=== PATIENT | female | born 1960 | race Caucasian/White ===

== ENCOUNTER → 2024-08-23 | Outpatient (CLI) | payer MEDICARE, SELFPAY ==
[2024-08-23 08:43] LABS: Glucose Estimated Average 97 mg/dL (80-131)
[2024-08-23 08:55] LABS: Parathyroid Hormone Intact 51.9 pg/ml (18.5-88.0)
[2024-08-23 09:00] LABS: Alanine Aminotransferase 31 U/L (10-49); Albumin, Serum 4.7 gm/dL (3.4-4.8); Albumin/Globulin Ratio 1.8 (1.2-2.2); Alkaline Phosphatase 70 U/L (46-116); Anion Gap 4 (7-16); Aspartate Amino Transferase 19 U/L (0-34); BUN/Creatinine Ratio 16 Ratio (12-20); Bilirubin,Total 0.7 mg/dL (0.3-1.2); Blood Urea Nitrogen 13 mg/dL (9-23); Calcium 10.2 mg/dL (8.3-10.6); Calcium (Corrected) 10.2 mg/dL (8.5-10.1); Cardiac Risk Estimate 3.7 RATIO (3.7-5.6); Chloride 104 mMol/L (98-107); Cholesterol 151 mg/dL (132-200); Creatinine (Component) 0.8 mg/dL (0.6-1.3); Free T3 2.8 pg/mL (2.3-4.2); Free T4 (Free Thyroxine) 0.94 ng/dL (0.89-1.76); Globulin 2.6 gm/dL (2.3-3.5); Glucose 96 mg/dL (74-106); HDL Cholesterol 41 mg/dL (40-60); LDL Cholesterol,Calculated 84 mg/dL (0-130); Osmolality,Calculated 268 (275-295); Potassium 4.7 mMol/L (3.4-5.1); Sodium 134 mMol/L (136-145); Thyroid Stimulating Hormone 23.06 uIU/mL (0.55-4.78); Total Protein 7.3 gm/dL (5.7-8.2); Triglycerides 132 mg/dL (30-150); eGFR > 60 See Note
[2024-08-29 06:40] LABS: Vitamin D, 25-OH, D2 25 ng/mL; Vitamin D, 25-OH, D3 15 ng/mL; Vitamin D, 25-OH, Total 40 ng/mL (30-100)
[2024-08-31 15:36] LABS: Cortisol, 24-Hr Volume 1100 mL
[2024-09-01 06:41] LABS: Cortisol, Free, 24-Hour Urine 33.7 mcg/24 h (4.0-50.0); Creatinine, 24-Hour Urine 0.88 g/24 h (0.50-2.15)
== END | disposition home or self-care (01) ==
LOC: COPL 07:53
PROVIDERS: PCP Specialist; Referring Provider Specialist; Visit Provider Specialist
DX: E78.2 Mixed hyperlipidemia (principal); E03.9 Hypothyroidism, unspecified; E21.1 Secondary hyperparathyroidism, not elsewhere classified; E08.3292 Diabetes mellitus due to underlying condition with mild nonproliferative diabetic retinopathy without macular edema, left eye
CPT/HCPCS: 36415; 80053; 80061; 82306; 82530; 83036; 83970; 84439; 84443; 84481

== ENCOUNTER → 2024-09-16 | Outpatient (CLI) | payer MEDICARE, SELFPAY ==
[2024-09-16 10:32] LABS: Basophils # (Auto) 0.1 Thou/mm3 (0.0-0.2); Basophils % (Auto) 1 % (0-2.5); Eosinophils # (Auto) 0.1 Thou/mm3 (0.0-0.5); Eosinophils % (Auto) 3 % (0-10); Hematocrit 39.2 % (36.0-46.0); Hemoglobin 13.1 g/dL (12.0-16.0); Immature Granulocytes % (Auto) 2 % (0-0); Immature Granulocytes Auto 0.08 Thou/mm3 (0.00-0.00); Lymphocytes % (Auto) 19 % (10-50); Mean Corpuscular HGB Conc 33.4 g/dl (31.0-37.0); Mean Corpuscular Hemoglobin 30.3 pg (25.0-35.0); Mean Corpuscular Volume 91 fL (80-100); Monocytes # (Auto) 0.7 Thou/mm3 (0.0-0.8); Monocytes % (Auto) 14 % (0-12); Neutrophils # (Auto) 3.4 Thou/mm3 (1.8-7.7); Neutrophils % (Auto) 63 % (37-80); Nucleated Red Blood Cell % 0 /100 WBC (0); Platelet Count 325 Thou/mm3 (140-440); RDW Standard Deviation 52.2 fL (36.4-46.3); Red Blood Count 4.33 Miln/mm3 (4.00-5.20); White Blood Count 5.5 Thou/mm3 (3.6-11.0)
[2024-09-16 11:07] LABS: Folate 8.91 ng/mL (>5.38); Vitamin B12 613 pg/mL (211-911)
[2024-09-16 11:18] LABS: Ferritin 232 ng/mL (7.3-270.7); Total Iron Binding Capacity 295 mcg/dL (250-425)
[2024-09-16 11:43] LABS: Iron 75 mcg/dL (50-170); Percent Iron Saturation 25 % (20-55); Unsaturated Iron Binding 220 (225-295)
[2024-09-26 06:48] LABS: Haptoglobin* 44 mg/dL (43-212)
== END | disposition home or self-care (01) ==
PROVIDERS: PCP Specialist; Referring Provider Internal Medicine Hematology & Oncology; Visit Provider Internal Medicine Hematology & Oncology
DX: R16.1 Splenomegaly, not elsewhere classified (principal)
CPT/HCPCS: 36415; 82607; 82728; 82746; 83010; 83540; 83550; 85025

== ENCOUNTER 2024-09-22 09:38 | Outpatient (RCR) | payer MEDICARE, SELFPAY ==
--- NOTE | 2024-09-22 13:03 | CTCFLWUP_ITS ---
Patient: JAMEEL LOUIE : 1960 Page 2 of 2 FOLLOW UP NOTE DATE OF SERVICE: 09/22/2024 NAME: JAMEEL LOUIE ACCOUNT: [id number] : 1960 AGE: 64 REASON FOR VISIT: Follow-up on iron deficiency INTERVAL HISTORY: Patient is here to follow-up on her iron deficiency anemia. Patient says that she has received 3 inf usions of iron and still feels the same. She understand that she has fatty liver disease and trying to lose weight. She has been on example he can have lost 9 pounds. She is not physically active. 1999: Patient had gastric bypass surgery done in [place] for obesity. 2019: Patient is started on B12 injections due to B12 deficiency. 01/21/2021: Hemoglobin 11.3, MCV 79, WBC 6.1, ANC 3.4, platelets 447,000, creatinine 0.8, iron saturat ion 11%, ferritin 5, TIBC 398. 02/26/2021: Hemoglobin 10.7, MCV 79, WBC 6.3, ANC 3.4, platelets 468,000, iron saturation 6%, ferritin 6, B12 408 and folate 13.15. 03/06/2021?05/01/2021: Patient received 1800 mg of Venofer. 05/09/2021: Hemoglobin 14.9, MCV 87, WBC 7.4, ANC 4.6, platelets 332,000. 07/23/2021: Hemoglobin 14.0, hematocrit 43.2, MCV 91, WBC 8.2, ANC 1.7, platelets 382,000, creatinine 0.9, iron saturation 21%, ferritin 188, B12 506, folate 9.18. 05/06/2021: MRI of the abdomen with and without contrast 10/28/2021: Liver/spleen nuclear medicine scan? 01/09/2022: CT scan of the abdomen with IV contrast? 01/28/2022: EGD? 02/04/2022: Colonoscopy? 08/12/2022: CT scan of the chest and abdomen with IV contrast? Hemoglobin 13.6, MCV 88, WBC 5.7, ANC 3.4, platelets 361,000, iron saturation 21%, ferritin 85. 08/19/2023: Hemoglobin 13.8, MCV 90, WBC 6.9, ANC 4.2, platelets 380,000, iron saturation 19%, ferriti n 69. B12 706, folate 11.87. 06/06/2024: Hemoglobin 14.9, MCV 87, WBC 10.3, ANC 7.4, platelets 443,000, creatinine 1.0, iron satura tion 14%, ferritin 78 B12 930, folate 13.32. DIAGNOSIS: History of Iron deficiency anemia not responding to oral ferrous sulfate. Status post Venofer infusion (03/06/2021 - 08/01/2021) History of gastric bypass surgery in 1999 for obesity. History of hypothyroidism as well as B12 deficiency. Cholecystectomy in 1984. Hepatosplenomegaly. Beatty Hiatal hernia. Hemorrhoids. 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 Ambien CR - 12.5 mg Daily 2. Citracal - 200 mg Twice a Day 3. cyanocobalamin (vitamin B-12) - 1,000 mcg/mL 1,000 microgram Monthly 4. levothyroxine - 125 mcg 1 tab Daily 5. multivitamin - 1 tab Daily 6. Prolia - 60 mg/mL 60 mg Every 6 Months 7. Protonix - 40 mg 1 Twice a Day 8. Vitamin D2 - 1,000 unit 2 Capsule Twice a Day Medications Last Reconciled by Madeleine June MA on 09/22/2024 ALLERGIES: No Known Drug Allergies REVIEW OF SYSTEMS: A complete 14-point review of systems was performed and is negative except as noted in interval histo ry. PHYSICAL EXAMINATION: VITAL SIGNS: Temperature?98, B/P?113/76, Oxygen?Saturation?98% Weight?190?lbs PAIN: 0 - No pain ECOG Performance Status: 0 - Asymptomatic and fully active EYE: Conjunctivae is white MOUTH: Oral cavity is moist CHEST: Clear to auscultation. No wheezes or ra les audible. CARDIAC: Rhythm regular, no murmurs or gallops present. ABDOMEN: Right upper quadrant mildly tender. EXTREMITIES: No pedal edema or cyanosis. LABORATORY DATA: I have personally reviewed and interpreted each of the patient?s relevant lab tests, abnormal finding s are below: Date 09/16/24 ??WHITE?BLOOD?COUNT?(Thou/mm3) 5.5 ??RED?BLOOD?COUNT?(Miln/mm3) 4.33 ??HEMOGLOBIN?(gm/dl) 13.1 ??HEMATOCRIT?(%) 39.2 ??PLATELET?COUNT?(Thou/mm3) 325 ??NEUTROPHILS?%,?AUTO?(%) 63 ??LYMPH?%,?AUTO?(%) 19 ??NEUTROPHILS,?AUTO?(Thou/mm3) 3.4 IMPRESSION/PLAN: #1 iron deficiency anemia hemoglobin is in the normal range. 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 I spent a total of 50 minutes on this patient?s care on the day of their visit excluding time spent related to any bi lled procedures. This time includes time spent with the patient as well as time spent documenting in the medical record, reviewing patients records and tests, obtaining history, placing orders, communi cating with other healthcare professionals, counseling the patient, family or caregiver, and/or care coordination for the diagnoses above. Electronically Signed by: Greg Reynoso MD T: 1:00 PM CC: Arthur?AYUSH Wheatley PCP: Arthur Wheatley Referring: Arthur Wheatley This document was completed utilizing speech recognition software. Grammatical errors, random word in sertions, pronoun errors, and incomplete sentences are an occasional consequence of this system due t o software limitations, ambient noise, and hardware issues. Any formal questions or concerns about th e content, text'? 81 iron deficiency with iron saturation of 14%. Hemoglobin is in the normal range. Patient's fatigue is multifactorial but can be attributed to low iron state thyroid issues and excess mary ann weight Counseled patient to continue iron infusion Will stop iron infusion after 5 treatments Jose Miguel l continue iron infusions for now 200 mg weekly for total 5 treatment Will check iron studies at that time Patient: JAMEEL LOUIE. : 1960 Page 5 of S Advised stretching and exercising Advised to continue wit h losing weight and encouraged patient to control her diet especially being on Ozempic #2 cirrhosis l iver Patient have diffusely hepatosplenomegaly secondary to Beatty Will check liver ultrasound to rule out SCC Advised to reduce weight #3 hypothyroidism 0n Levoxyl Patient very symptomatic with the sympt oms of fatigue and tiredness likely attributable to hypothyroid Some patient's symptoms improved with [place] Thyroid advised to discuss with the PCP or cad technician the same #4 hiatal hernia Follow-u p with PCP Continue diet and exercise for weight loss #5 history of gastric bypass Patient's last vit groves levels was within normal range Advised to continue her supplements or information contained with in the body of this dictation should be directly addressed to the provider for clarification.
== END 2024-10-11 23:59 | disposition home or self-care (01) ==
LOC: SCTC 09:38
PROVIDERS: PCP Specialist; Referring Provider Specialist; Visit Provider Internal Medicine Hematology & Oncology
DX: D50.9 Iron deficiency anemia, unspecified (principal); K74.60 Unspecified cirrhosis of liver; E03.9 Hypothyroidism, unspecified; K44.9 Diaphragmatic hernia without obstruction or gangrene
CPT/HCPCS: 99212; G0463

== ENCOUNTER → 2024-10-21 | Outpatient (CLI) | payer MEDICARE, SELFPAY ==
--- NOTE | 2024-10-21 | XR_ITS ---
Examination: PA lateral chest 2 views TECHNIQUE: Upright PA lateral chest 2 views Exam date and time: October 21, 2024 0729 hours Comparison April 10, 2022 INDICATIONS: Coughing beginning 3 weeks ago, history pulmonary nodule FINDINGS: Mild prominence of the left ventricle Parenchymal disease in the lingular segment obscuring detail left cardiac contour Right lung clear Severe osteopenia with mild kyphosis dorsal spine IMPRESSION: Mild pneumonia lingular segment left upper lobe
== END | disposition home or self-care (01) ==
PROVIDERS: PCP Specialist; Referring Provider Specialist; Visit Provider Specialist
DX: J18.9 Pneumonia, unspecified organism (principal)
CPT/HCPCS: 71046

== ENCOUNTER → 2024-10-27 | Outpatient (CLI) | payer MEDICARE, SELFPAY ==
[2024-10-27 09:37] LABS: Coccid Serology, CF (UCD)* See Sep Rpt
[2024-10-27 11:19] LABS: Alanine Aminotransferase 35 U/L (10-49); Albumin, Serum 4.5 gm/dL (3.4-4.8); Albumin/Globulin Ratio 1.6 (1.2-2.2); Alkaline Phosphatase 82 U/L (46-116); Anion Gap 10 (7-16); Aspartate Amino Transferase 24 U/L (0-34); BUN/Creatinine Ratio 19 Ratio (12-20); Bilirubin,Total 0.6 mg/dL (0.3-1.2); Blood Urea Nitrogen 17 mg/dL (9-23); Calcium 9.9 mg/dL (8.3-10.6); Calcium (Corrected) 9.9 mg/dL (8.5-10.1); Carbon Dioxide 26.5 mMol/L (20.0-31.0); Chloride 102 mMol/L (98-107); Creatinine (Component) 0.9 mg/dL (0.6-1.3); Globulin 2.8 gm/dL (2.3-3.5); Glucose 106 mg/dL (74-106); Osmolality,Calculated 277 (275-295); Potassium 4.2 mMol/L (3.4-5.1); Sodium 138 mMol/L (136-145); Thyroid Stimulating Hormone 5.11 uIU/mL (0.55-4.78); Total Protein 7.3 gm/dL (5.7-8.2); eGFR > 60 See Note
[2024-10-27 20:38] LABS: Free T3 2.6 pg/mL (2.3-4.2)
[2024-10-28 02:58] LABS: Vitamin D 25 Hydroxy Total 31.8 ng/mL (7.3-40.2)
[2024-11-01 06:34] LABS: Thyroid Peroxidase Antibodies* 1 IU/mL (<9)
== END | disposition home or self-care (01) ==
LOC: COPL 09:16
PROVIDERS: PCP Specialist; Referring Provider Specialist; Visit Provider Specialist
DX: D73.2 Chronic congestive splenomegaly (principal); E87.1 Hypo-osmolality and hyponatremia; E03.4 Atrophy of thyroid (acquired); J45.901 Unspecified asthma with (acute) exacerbation
CPT/HCPCS: 36415; 80053; 82306; 84439; 84443; 84481; 86171; 86376

== ENCOUNTER → 2024-12-28 | Outpatient (CLI) | payer MEDICARE, SELFPAY ==
[2024-12-28 09:54] LABS: Basophils # (Auto) 0.1 Thou/mm3 (0.0-0.2); Basophils % (Auto) 1 % (0-2.5); Eosinophils # (Auto) 0.3 Thou/mm3 (0.0-0.5); Eosinophils % (Auto) 4 % (0-10); Hematocrit 41.6 % (36.0-46.0); Hemoglobin 13.8 g/dL (12.0-16.0); Immature Granulocytes % (Auto) 2 % (0-0); Immature Granulocytes Auto 0.12 Thou/mm3 (0.00-0.00); Lymphocytes # (Auto) 1.3 Thou/mm3 (1.0-4.8); Lymphocytes % (Auto) 17 % (10-50); Mean Corpuscular HGB Conc 33.2 g/dl (31.0-37.0); Mean Corpuscular Hemoglobin 30.1 pg (25.0-35.0); Mean Corpuscular Volume 91 fL (80-100); Monocytes % (Auto) 13 % (0-12); Neutrophils # (Auto) 4.7 Thou/mm3 (1.8-7.7); Neutrophils % (Auto) 63 % (37-80); Nucleated Red Blood Cell % 0 /100 WBC (0); Platelet Count 387 Thou/mm3 (140-440); RDW Standard Deviation 49.1 fL (36.4-46.3); Red Blood Count 4.58 Miln/mm3 (4.00-5.20); White Blood Count 7.4 Thou/mm3 (3.6-11.0)
[2024-12-28 10:11] LABS: Parathyroid Hormone Intact 45.1 pg/ml (18.5-88.0)
[2024-12-28 10:19] LABS: Alanine Aminotransferase 29 U/L (10-49); Albumin, Serum 4.4 gm/dL (3.4-4.8); Albumin/Globulin Ratio 1.7 (1.2-2.2); Alkaline Phosphatase 72 U/L (46-116); Anion Gap 9 (7-16); Aspartate Amino Transferase 20 U/L (0-34); BUN/Creatinine Ratio 14 Ratio (12-20); Bilirubin,Total 0.6 mg/dL (0.3-1.2); Blood Urea Nitrogen 14 mg/dL (9-23); Carbon Dioxide 26.6 mMol/L (20.0-31.0); Cardiac Risk Estimate 3.7 RATIO (3.7-5.6); Chloride 102 mMol/L (98-107); Cholesterol 157 mg/dL (132-200); Free T3 4.7 pg/mL (2.3-4.2); Globulin 2.6 gm/dL (2.3-3.5); Glucose 101 mg/dL (74-106); HDL Cholesterol 43 mg/dL (40-60); LDL Cholesterol,Calculated 84 mg/dL (0-130); Osmolality,Calculated 276 (275-295); Potassium 4.5 mMol/L (3.4-5.1); Sodium 138 mMol/L (136-145); Thyroid Stimulating Hormone 5.64 uIU/mL (0.55-4.78); Triglycerides 149 mg/dL (30-150); eGFR > 60 See Note
[2025-01-02 06:55] LABS: Thyroid Peroxidase Antibodies* 1 IU/mL (<9)
== END | disposition home or self-care (01) ==
LOC: COPL 09:08
PROVIDERS: PCP Specialist; Referring Provider Internal Medicine Endocrinology, Diabetes & Metabolism; Visit Provider Internal Medicine Endocrinology, Diabetes & Metabolism
DX: E03.9 Hypothyroidism, unspecified (principal); E21.1 Secondary hyperparathyroidism, not elsewhere classified; Z98.84 Bariatric surgery status
CPT/HCPCS: 36415; 80053; 80061; 82306; 83970; 84443; 84481; 85025; 86376

== ENCOUNTER → 2025-02-06 | Outpatient (CLI) | payer MEDICARE, SELFPAY ==
[2025-02-06 08:55] LABS: Alanine Aminotransferase 33 U/L (10-49); Albumin, Serum 4.4 gm/dL (3.4-4.8); Albumin/Globulin Ratio 1.6 (1.2-2.2); Alkaline Phosphatase 74 U/L (46-116); Anion Gap 6 (7-16); Aspartate Amino Transferase 22 U/L (0-34); BUN/Creatinine Ratio 17 Ratio (12-20); Bilirubin,Total 0.5 mg/dL (0.3-1.2); Blood Urea Nitrogen 15 mg/dL (9-23); Calcium 9.7 mg/dL (8.3-10.6); Calcium (Corrected) 9.7 mg/dL (8.5-10.1); Carbon Dioxide 26.3 mMol/L (20.0-31.0); Chloride 106 mMol/L (98-107); Creatinine (Component) 0.9 mg/dL (0.6-1.3); Globulin 2.8 gm/dL (2.3-3.5); Glucose 118 mg/dL (74-106); Osmolality,Calculated 277 (275-295); Potassium 4.6 mMol/L (3.4-5.1); Sodium 138 mMol/L (136-145); Total Protein 7.2 gm/dL (5.7-8.2); eGFR > 60 See Note
[2025-02-06 08:57] LABS: Basophils # (Auto) 0.1 Thou/mm3 (0.0-0.2); Basophils % (Auto) 1 % (0-2.5); Eosinophils # (Auto) 0.3 Thou/mm3 (0.0-0.5); Eosinophils % (Auto) 4 % (0-10); Hematocrit 42.1 % (36.0-46.0); Immature Granulocytes % (Auto) 2 % (0-0); Immature Granulocytes Auto 0.15 Thou/mm3 (0.00-0.00); Lymphocytes # (Auto) 1.4 Thou/mm3 (1.0-4.8); Lymphocytes % (Auto) 20 % (10-50); Mean Corpuscular HGB Conc 33.3 g/dl (31.0-37.0); Mean Corpuscular Hemoglobin 30.3 pg (25.0-35.0); Mean Corpuscular Volume 91 fL (80-100); Monocytes # (Auto) 0.9 Thou/mm3 (0.0-0.8); Monocytes % (Auto) 12 % (0-12); Neutrophils # (Auto) 4.2 Thou/mm3 (1.8-7.7); Neutrophils % (Auto) 61 % (37-80); Nucleated Red Blood Cell % 0 /100 WBC (0); Platelet Count 366 Thou/mm3 (140-440); RDW Standard Deviation 48.5 fL (36.4-46.3); Red Blood Count 4.62 Miln/mm3 (4.00-5.20)
== END | disposition home or self-care (01) ==
LOC: COPL 07:27
PROVIDERS: PCP Specialist; Referring Provider Internal Medicine; Visit Provider Internal Medicine
DX: K74.00 Hepatic fibrosis, unspecified (principal); K75.81 Nonalcoholic steatohepatitis (NASH)
CPT/HCPCS: 36415; 80053; 82105; 85025

== ENCOUNTER → 2025-02-14 | Outpatient (CLI) | payer MEDICARE, SELFPAY ==
--- NOTE | 2025-02-14 10:30 | XR_ITS ---
Examination: Liver ultrasound elastography Exam date and time: February 14, 2025 1022 hours INDICATIONS: Fatty liver diagnosis July 2024 FINDINGS: Liver 17.9 cm fatty infiltration smooth contour no focal liver lesions Normal hepatopedal portal venous flow Patent IVC Tissue stiffness average 1.8 m/s mild to moderate liver fibrosis IMPRESSION: [id number] liver fibrosis
== END | disposition home or self-care (01) ==
PROVIDERS: PCP Specialist; Referring Provider Internal Medicine; Visit Provider Internal Medicine
DX: K74.00 Hepatic fibrosis, unspecified (principal); K75.81 Nonalcoholic steatohepatitis (NASH)
CPT/HCPCS: 76981

== ENCOUNTER → 2025-03-08 | Outpatient (CLI) | payer MEDICARE, SELFPAY ==
[2025-03-08 08:32] LABS: Basophils # (Auto) 0.1 Thou/mm3 (0.0-0.2); Basophils % (Auto) 1 % (0-2.5); Eosinophils # (Auto) 0.3 Thou/mm3 (0.0-0.5); Eosinophils % (Auto) 4 % (0-10); Hematocrit 40.8 % (36.0-46.0); Hemoglobin 14.1 g/dL (12.0-16.0); Immature Granulocytes % (Auto) 2 % (0-0); Lymphocytes # (Auto) 1.1 Thou/mm3 (1.0-4.8); Lymphocytes % (Auto) 16 % (10-50); Mean Corpuscular HGB Conc 34.6 g/dl (31.0-37.0); Mean Corpuscular Hemoglobin 30.3 pg (25.0-35.0); Mean Corpuscular Volume 88 fL (80-100); Monocytes # (Auto) 0.9 Thou/mm3 (0.0-0.8); Monocytes % (Auto) 14 % (0-12); Neutrophils # (Auto) 4.4 Thou/mm3 (1.8-7.7); Neutrophils % (Auto) 64 % (37-80); Nucleated Red Blood Cell % 0 /100 WBC (0); Platelet Count 364 Thou/mm3 (140-440); RDW Standard Deviation 46.7 fL (36.4-46.3); Red Blood Count 4.65 Miln/mm3 (4.00-5.20); Reticulocyte % (Auto) 3.2 % (0.5-1.5); Reticulocyte Absolute Auto 146.5 Biln/L (25.0-75.0); Reticulocyte Hgb Content 34.4 pg (28.0-35.0); White Blood Count 6.9 Thou/mm3 (3.6-11.0)
[2025-03-08 08:41] LABS: Glucose Estimated Average 105 mg/dL (80-131); Hemoglobin A1C 5.3 % Hgb (4.8-6.0)
[2025-03-08 08:52] LABS: Alanine Aminotransferase 32 U/L (10-49); Albumin, Serum 4.4 gm/dL (3.4-4.8); Albumin/Globulin Ratio 1.7 (1.2-2.2); Alkaline Phosphatase 70 U/L (46-116); Anion Gap 10 (7-16); Aspartate Amino Transferase 22 U/L (0-34); BUN/Creatinine Ratio 16 Ratio (12-20); Bilirubin,Total 0.6 mg/dL (0.3-1.2); Blood Urea Nitrogen 14 mg/dL (9-23); Calcium 9.4 mg/dL (8.3-10.6); Calcium (Corrected) 9.4 mg/dL (8.5-10.1); Carbon Dioxide 25.2 mMol/L (20.0-31.0); Cardiac Risk Estimate 3.3 RATIO (3.7-5.6); Chloride 104 mMol/L (98-107); Cholesterol 150 mg/dL (132-200); Creatinine (Component) 0.9 mg/dL (0.6-1.3); Free T3 2.8 pg/mL (2.3-4.2); Free T4 (Free Thyroxine) 0.93 ng/dL (0.89-1.76); Globulin 2.6 gm/dL (2.3-3.5); Glucose 113 mg/dL (74-106); HDL Cholesterol 45 mg/dL (40-60); LDH (Lactate Dehydrogenase) 154 U/L (120-246); LDL Cholesterol,Calculated 84 mg/dL (0-130); Osmolality,Calculated 279 (275-295); Potassium 4.6 mMol/L (3.4-5.1); Sodium 139 mMol/L (136-145); Triglycerides 107 mg/dL (30-150); eGFR > 60 See Note
[2025-03-08 08:53] LABS: Creatinine MALB Rnd Ur 117 mg/dL (30-125); Microalbumin, Random Urine < 3 mg/L (0-300)
[2025-03-08 08:58] LABS: Ferritin 173 ng/mL (7.3-270.7); Folate 7.45 ng/mL (>5.38); Iron 68 mcg/dL (50-170); Percent Iron Saturation 23 % (20-55); Total Iron Binding Capacity 289 mcg/dL (250-425); Unsaturated Iron Binding 221 (225-295); Vitamin B12 525 pg/mL (211-911)
== END | disposition home or self-care (01) ==
LOC: COPL 07:21
PROVIDERS: PCP Specialist; Referring Provider Internal Medicine Endocrinology, Diabetes & Metabolism; Visit Provider Internal Medicine Hematology & Oncology
DX: R16.1 Splenomegaly, not elsewhere classified (principal); E11.65 Type 2 diabetes mellitus with hyperglycemia; E78.2 Mixed hyperlipidemia; E03.9 Hypothyroidism, unspecified
CPT/HCPCS: 36415; 80053; 80061; 82043; 82105; 82570; 82607; 82728; 82746; 83036; 83540; 83550; 83615; 84439; 84443; 84481; 85025; 85046

== ENCOUNTER → 2025-03-20 | Outpatient (CLI) | payer MEDICARE, SELFPAY ==
[2025-03-20 11:25] LABS: C-Reactive Protein < 0.5 mg/dL (0.0-0.9)
[2025-03-20 13:42] LABS: Sed Rate (ESR) 10 mm/hr (0-30)
[2025-03-20 15:41] LABS: RA Screen Negative (Negative)
[2025-03-25 19:49] LABS: EBV VCA Ab (IgG) >750.00 U/mL; EBV VCA Ab (IgM) <36.00 U/mL; Sjogren's antibody (SS-A) <1.0 NEG AI (<1.0 NEGATIVE); Sm Antibody <1.0 NEG AI (<1.0 NEGATIVE)
[2025-03-27 07:11] LABS: ANA Pattern NUCLEAR, HOMOGENEOUS; ANA Screen, IFA POSITIVE (NEGATIVE); Actin Antibody (IgG)* <20 U; Complement Component C3* 130 mg/dL (83-193); Complement Component C4c* 12 mg/dL (15-57); DNA (ds) Antibody* 1 IU/mL; EBV Ab Interpretation PAST; Gastric Parietal Cell Ab* <20.0 U; Lyme Antibody Screen <0.90 INDEX; Mitochondrial Ab NEGATIVE (NEGATIVE); Myocardial Ab, IF NEGATIVE (NEGATIVE); Scl-70 Antibody* <1.0 NEG AI (<1.0 NEGATIVE); Sjogren's Antibody (SS-B) <1.0 NEG AI (<1.0 NEGATIVE); Sm/RNP Antibody <1.0 NEG AI (<1.0 NEGATIVE); Striated Muscle Ab NEGATIVE (NEGATIVE); Thyroid Peroxidase Antibodies* 1 IU/mL (<9)
== END | disposition home or self-care (01) ==
LOC: COPL 10:09
PROVIDERS: PCP Specialist; Referring Provider Specialist; Visit Provider Specialist
DX: R53.82 Chronic fatigue, unspecified (principal)
CPT/HCPCS: 36415; 83516; 85652; 86015; 86038; 86140; 86160; 86225; 86235; 86255; 86376; 86430; 86618; 86664; 86665

== ENCOUNTER → 2025-04-21 | Outpatient (CLI) | payer MEDICARE, SELFPAY ==
[2025-04-21 09:56] LABS: Basophils # (Auto) 0.1 Thou/mm3 (0.0-0.2); Basophils % (Auto) 1 % (0-2.5); Eosinophils # (Auto) 0.3 Thou/mm3 (0.0-0.5); Eosinophils % (Auto) 4 % (0-10); Hematocrit 41.3 % (36.0-46.0); Hemoglobin 13.9 g/dL (12.0-16.0); Immature Granulocytes Auto 0.12 Thou/mm3 (0.00-0.00); Lymphocytes # (Auto) 1.4 Thou/mm3 (1.0-4.8); Lymphocytes % (Auto) 19 % (10-50); Mean Corpuscular HGB Conc 33.7 g/dl (31.0-37.0); Mean Corpuscular Hemoglobin 29.6 pg (25.0-35.0); Mean Corpuscular Volume 88 fL (80-100); Monocytes # (Auto) 0.8 Thou/mm3 (0.0-0.8); Monocytes % (Auto) 12 % (0-12); Neutrophils # (Auto) 4.4 Thou/mm3 (1.8-7.7); Neutrophils % (Auto) 62 % (37-80); Nucleated Red Blood Cell # 0.00 Thou/mm3 (0.00-0.00); Nucleated Red Blood Cell % 0 /100 WBC (0); Platelet Count 377 Thou/mm3 (140-440); RDW Standard Deviation 47.8 fL (36.4-46.3); Red Blood Count 4.70 Miln/mm3 (4.00-5.20); White Blood Count 7.1 Thou/mm3 (3.6-11.0)
[2025-04-21 10:21] LABS: Alanine Aminotransferase 35 U/L (10-49); Albumin, Serum 4.4 gm/dL (3.4-4.8); Alkaline Phosphatase 73 U/L (46-116); Anion Gap 9 (7-16); Aspartate Amino Transferase 26 U/L (0-34); BUN/Creatinine Ratio 13 Ratio (12-20); Bilirubin,Direct 0.2 mg/dL (0.0-0.3); Bilirubin,Total 0.7 mg/dL (0.3-1.2); Blood Urea Nitrogen 12 mg/dL (9-23); Calcium 9.5 mg/dL (8.3-10.6); Carbon Dioxide 26.1 mMol/L (20.0-31.0); Cardiac Risk Estimate 3.6 RATIO (3.7-5.6); Chloride 106 mMol/L (98-107); Cholesterol 151 mg/dL (132-200); Creatinine (Component) 0.9 mg/dL (0.6-1.3); Free T4 (Free Thyroxine) 0.78 ng/dL (0.89-1.76); Glucose 107 mg/dL (74-106); HDL Cholesterol 42 mg/dL (40-60); LDL Cholesterol,Calculated 83 mg/dL (0-130); Osmolality,Calculated 280 (275-295); Potassium 4.3 mMol/L (3.4-5.1); Sodium 141 mMol/L (136-145); Thyroid Stimulating Hormone 6.97 uIU/mL (0.55-4.78); Total Protein 7.3 gm/dL (5.7-8.2); Triglycerides 129 mg/dL (30-150); eGFR > 60 See Note
== END | disposition home or self-care (01) ==
LOC: COPL 08:50
PROVIDERS: PCP Specialist; Referring Provider Internal Medicine Cardiovascular Disease; Visit Provider Internal Medicine Cardiovascular Disease
DX: I10 Essential (primary) hypertension (principal); I20.9 Angina pectoris, unspecified; E78.5 Hyperlipidemia, unspecified; E03.9 Hypothyroidism, unspecified
CPT/HCPCS: 36415; 80048; 80061; 80076; 84439; 84443; 85025

== ENCOUNTER 2025-05-04 10:40 | Outpatient (RCR) | payer MEDICARE, SELFPAY | END 2025-05-11 23:59 | disposition home or self-care (01) | LOC: SCTC 10:40 | PROVIDERS: PCP Specialist; Referring Provider Specialist; Visit Provider Internal Medicine Hematology & Oncology | DX: D50.9 Iron deficiency anemia, unspecified (principal); K74.60 Unspecified cirrhosis of liver; R16.2 Hepatomegaly with splenomegaly, not elsewhere classified; E03.9 Hypothyroidism, unspecified; E66.9 Obesity, unspecified; Z68.37 Body mass index [BMI] 37.0-37.9, adult | CPT/HCPCS: 99212; G0463 ==

== ENCOUNTER → 2025-05-30 | Outpatient (CLI) | payer MEDICARE, SELFPAY ==
[2025-05-30 08:00] LABS: Calcium, Ionized 4.8 mg/dL (4.6-5.6)
[2025-05-30 08:21] LABS: Creatinine MALB Rnd Ur 63 mg/dL (30-125); Microalbumin, Random Urine < 3 mg/L (0-300)
[2025-05-30 08:21] LABS: Glucose Estimated Average 123 mg/dL (80-131); Hemoglobin A1C 5.9 % Hgb (4.8-6.0); Parathyroid Hormone Intact 49.4 pg/ml (18.5-88.0)
[2025-05-30 08:28] LABS: Folate 8.12 ng/mL (>5.38); Vitamin B12 426 pg/mL (211-911); Vitamin D 25 Hydroxy Total 28.6 ng/mL (7.3-40.2)
[2025-05-30 08:29] LABS: Alanine Aminotransferase 36 U/L (10-49); Albumin, Serum 4.2 gm/dL (3.4-4.8); Albumin/Globulin Ratio 1.8 (1.2-2.2); Alkaline Phosphatase 76 U/L (46-116); Anion Gap 11 (7-16); Aspartate Amino Transferase 24 U/L (0-34); BUN/Creatinine Ratio 20 Ratio (12-20); Bilirubin,Total 0.5 mg/dL (0.3-1.2); Blood Urea Nitrogen 16 mg/dL (9-23); Calcium 10.2 mg/dL (8.3-10.6); Calcium (Corrected) 10.2 mg/dL (8.5-10.1); Carbon Dioxide 24.5 mMol/L (20.0-31.0); Cardiac Risk Estimate 3.5 RATIO (3.7-5.6); Chloride 105 mMol/L (98-107); Cholesterol 146 mg/dL (132-200); Creatinine (Component) 0.8 mg/dL (0.6-1.3); Free T4 (Free Thyroxine) 0.84 ng/dL (0.89-1.76); Globulin 2.4 gm/dL (2.3-3.5); Glucose 112 mg/dL (74-106); HDL Cholesterol 42 mg/dL (40-60); LDL Cholesterol,Calculated 72 mg/dL (0-130); Magnesium 1.6 mg/dL (1.6-2.6); Osmolality,Calculated 281 (275-295); Potassium 4.5 mMol/L (3.4-5.1); Sodium 140 mMol/L (136-145); Thyroid Stimulating Hormone 7.99 uIU/mL (0.55-4.78); Total Protein 6.6 gm/dL (5.7-8.2); Triglycerides 158 mg/dL (30-150); eGFR > 60 See Note
== END | disposition home or self-care (01) ==
LOC: COPL 07:17
PROVIDERS: PCP Specialist; Referring Provider Specialist; Visit Provider Specialist
DX: E11.65 Type 2 diabetes mellitus with hyperglycemia (principal); E78.2 Mixed hyperlipidemia; E03.8 Other specified hypothyroidism; D51.9 Vitamin B12 deficiency anemia, unspecified; E83.51 Hypocalcemia
CPT/HCPCS: 36415; 80053; 80061; 82043; 82306; 82330; 82570; 82607; 82746; 83036; 83735; 83970; 84439; 84443

== ENCOUNTER → 2025-06-21 | Outpatient (CLI) | payer MEDICARE, SELFPAY ==
--- NOTE | 2025-06-21 16:10 | XR_ITS ---
EXAMINATION: Cervical spine, 5 views Technique: Cervical spine AP, AP odontoid, lateral, bilateral obliques, 5 views Exam date and time: June 21, 2025, 1621 hrs. Indications: Neck pain beginning 2 weeks ago. Findings: Cervical levoscoliosis 10 degrees Moderate osteopenia. No cervical fracture. Intact odontoid. Early degenerative disc disease C5-C6 but no neural foraminal stenosis. Impression: Early degenerative disc disease C5-C6.
--- NOTE | 2025-06-21 16:10 | XR_ITS ---
Examination: Thoracic spine 2 views Technique one AP lateral thoracic spine 2 views Date and time: June 21, 20122024, 1642 hrs., Comparison 06/27/2020. Indications: Upper back pain 2 weeks, history scoliosis Findings: Prominent osteopenia. Moderate diffuse thoracic degenerative disc disease. No acute thoracic fracture. Upper thoracic dextroscoliosis 12 degrees, thoracolumbar levoscoliosis 19 degrees Impression: Moderate diffuse thoracic degenerative disc disease. Significant scoliosis as above.
--- NOTE | 2025-06-21 16:10 | XR_ITS ---
Examination: Lumbar spine, 5 views Technique: Lumbar spine AP, lateral, coned lateral lower lumbar spine, bilateral obliques 5 views Exam date and time: June 21, 2025, 1621 hrs., Comparison June 25, 2023. Indications: Low back pain, chronic more severe the last 2 weeks. Findings: Prominent osteopenia. Thoracolumbar dextroscoliosis 19 degrees. Advanced diffuse facet arthropathy Grade 2 spondylolisthesis L5 on S1 with advanced degenerative disc disease at this level No acute lumbar fracture Impression: Prominent thoracolumbar dextroscoliosis. Grade 2 spondylolisthesis L5 on S1 Advanced degenerative disc disease L5-S1
== END | disposition home or self-care (01) ==
LOC: CDIM 15:41
PROVIDERS: Referring Provider Specialist; Visit Provider Specialist
DX: M50.322 Other cervical disc degeneration at C5-C6 level (principal); M51.34 Other intervertebral disc degeneration, thoracic region; M41.84 Other forms of scoliosis, thoracic region; M41.85 Other forms of scoliosis, thoracolumbar region; M43.17 Spondylolisthesis, lumbosacral region; M51.370 Other intervertebral disc degeneration, lumbosacral region with discogenic back pain only
CPT/HCPCS: 72050; 72072; 72110

== ENCOUNTER → 2025-06-22 | Outpatient (CLI) | payer MEDICARE, SELFPAY ==
[2025-06-22 08:55] LABS: Alanine Aminotransferase 32 U/L (10-49); Albumin, Serum 4.5 gm/dL (3.4-4.8); Albumin/Globulin Ratio 1.7 (1.2-2.2); Alkaline Phosphatase 76 U/L (46-116); Anion Gap 7 (7-16); Aspartate Amino Transferase 23 U/L (0-34); BUN/Creatinine Ratio 13 Ratio (12-20); Bilirubin,Total 0.6 mg/dL (0.3-1.2); Blood Urea Nitrogen 12 mg/dL (9-23); Calcium 10.0 mg/dL (8.3-10.6); Calcium (Corrected) 10.0 mg/dL (8.5-10.1); Carbon Dioxide 25.6 mMol/L (20.0-31.0); Chloride 104 mMol/L (98-107); Creatinine (Component) 0.9 mg/dL (0.6-1.3); Free T3 2.7 pg/mL (2.3-4.2); Globulin 2.6 gm/dL (2.3-3.5); Glucose 104 mg/dL (74-106); Osmolality,Calculated 273 (275-295); Potassium 4.5 mMol/L (3.4-5.1); Sodium 137 mMol/L (136-145); Thyroid Stimulating Hormone 5.52 uIU/mL (0.55-4.78); Total Protein 7.1 gm/dL (5.7-8.2); eGFR > 60 See Note
== END | disposition home or self-care (01) ==
LOC: COPL 07:39
PROVIDERS: PCP Specialist; Referring Provider Internal Medicine Endocrinology, Diabetes & Metabolism; Visit Provider Internal Medicine Endocrinology, Diabetes & Metabolism
DX: E03.9 Hypothyroidism, unspecified (principal); R73.03 Prediabetes; I10 Essential (primary) hypertension
CPT/HCPCS: 36415; 80053; 84443; 84481

== ENCOUNTER → 2025-07-26 | Outpatient (CLI) | payer MEDICARE, SELFPAY ==
--- NOTE | 2025-07-26 08:45 | XR_ITS ---
Examination: Screening digital mammography, bilateral Computer aided detection 3-D breast Tomosynthesis, bilateral Date and time of exam: 07/26/2025, 8:32 a.m. Comparisons: 2021 through April 2024 Indications: Screening Technique: Nonmagnified MLO, CC views of the breasts to been obtained, reconstructed from 3-D Tomosynthesis images. R2 computer aided detection program utilized for evaluation of suspicious masses and/or abnormal calcifications. 3-D Tomosynthesis images obtained. Technologist: Findings: There are scattered areas of fibroglandular density. No evidence of abnormal masses or suspicious calcifications. Impression: BI-RADS category 1: Negative findings (within normal) Recommend 1 year follow-up mammogram
[2025-07-26 10:56] LABS: Basophils # (Auto) 0.1 Thou/mm3 (0.0-0.2); Basophils % (Auto) 1 % (0-2.5); Eosinophils # (Auto) 0.2 Thou/mm3 (0.0-0.5); Eosinophils % (Auto) 3 % (0-10); Hematocrit 43.1 % (36.0-46.0); Hemoglobin 14.0 g/dL (12.0-16.0); Immature Granulocytes Auto 0.12 Thou/mm3 (0.00-0.00); Lymphocytes # (Auto) 1.2 Thou/mm3 (1.0-4.8); Lymphocytes % (Auto) 19 % (10-50); Mean Corpuscular HGB Conc 32.5 g/dl (31.0-37.0); Mean Corpuscular Hemoglobin 29.2 pg (25.0-35.0); Mean Corpuscular Volume 90 fL (80-100); Monocytes # (Auto) 1.0 Thou/mm3 (0.0-0.8); Monocytes % (Auto) 15 % (0-12); Neutrophils # (Auto) 4.0 Thou/mm3 (1.8-7.7); Neutrophils % (Auto) 60 % (37-80); Nucleated Red Blood Cell # 0.00 Thou/mm3 (0.00-0.00); Nucleated Red Blood Cell % 0 /100 WBC (0); Platelet Count 370 Thou/mm3 (140-440); RDW Standard Deviation 47.8 fL (36.4-46.3); Red Blood Count 4.80 Miln/mm3 (4.00-5.20); White Blood Count 6.6 Thou/mm3 (3.6-11.0)
[2025-07-26 11:11] LABS: Vitamin D 25 Hydroxy Total 28.7 ng/mL (7.3-40.2)
[2025-07-26 11:20] LABS: Alanine Aminotransferase 46 U/L (10-49); Albumin, Serum 4.6 gm/dL (3.4-4.8); Albumin/Globulin Ratio 1.6 (1.2-2.2); Alkaline Phosphatase 70 U/L (46-116); Anion Gap 12 (7-16); Aspartate Amino Transferase 32 U/L (0-34); BUN/Creatinine Ratio 15 Ratio (12-20); Bilirubin,Total 0.7 mg/dL (0.3-1.2); Blood Urea Nitrogen 12 mg/dL (9-23); C-Reactive Protein < 0.5 mg/dL (0.0-0.9); Calcium 10.0 mg/dL (8.3-10.6); Calcium (Corrected) 10.0 mg/dL (8.5-10.1); Carbon Dioxide 23.3 mMol/L (20.0-31.0); Chloride 103 mMol/L (98-107); Creatinine (Component) 0.8 mg/dL (0.6-1.3); Globulin 2.9 gm/dL (2.3-3.5); Glucose 113 mg/dL (74-106); Osmolality,Calculated 276 (275-295); Potassium 4.6 mMol/L (3.4-5.1); Sodium 138 mMol/L (136-145); Total Protein 7.5 gm/dL (5.7-8.2); eGFR > 60 See Note
[2025-07-26 11:22] LABS: Sed Rate (ESR) 6 mm/hr (0-30)
[2025-07-26 15:33] LABS: RA Screen Negative (Negative)
[2025-07-31 06:42] LABS: CCP Antibody (IgG)* <16 Units; HLA-B27 Antigen* NEGATIVE (NEGATIVE)
== END | disposition home or self-care (01) ==
LOC: CDIM 08:18 → COPL 08:43
PROVIDERS: PCP Specialist; Referring Provider Internal Medicine; Visit Provider Radiology Diagnostic Radiology
DX: Z12.31 Encounter for screening mammogram for malignant neoplasm of breast (principal); R92.8 Other abnormal and inconclusive findings on diagnostic imaging of breast; R92.313 Mammographic fatty tissue density, bilateral breasts; E03.9 Hypothyroidism, unspecified; E21.3 Hyperparathyroidism, unspecified; E55.9 Vitamin D deficiency, unspecified; F41.9 Anxiety disorder, unspecified; G60.9 Hereditary and idiopathic neuropathy, unspecified; G89.29 Other chronic pain; K75.81 Nonalcoholic steatohepatitis (NASH); M54.9 Dorsalgia, unspecified; M81.0 Age-related osteoporosis without current pathological fracture; Z13.820 Encounter for screening for osteoporosis; Z78.0 Asymptomatic menopausal state; Z79.83 Long term (current) use of bisphosphonates; Z79.899 Other long term (current) drug therapy
CPT/HCPCS: 36415; 77063; 77067; 80053; 82306; 85025; 85652; 86140; 86200; 86430; 86812

== ENCOUNTER 2025-08-15 10:36 | Outpatient (RCR) | payer MEDICARE, SELFPAY | END 2025-09-10 23:59 | disposition home or self-care (01) | LOC: SCTC 10:36 | PROVIDERS: PCP Specialist; Referring Provider Specialist; Visit Provider Nurse Practitioner Family | DX: D50.9 Iron deficiency anemia, unspecified (principal); E03.9 Hypothyroidism, unspecified; E66.9 Obesity, unspecified; Z68.37 Body mass index [BMI] 37.0-37.9, adult; K74.60 Unspecified cirrhosis of liver; R16.2 Hepatomegaly with splenomegaly, not elsewhere classified; Z98.84 Bariatric surgery status | CPT/HCPCS: 99212; G0463 ==

== ENCOUNTER → 2025-08-17 | Outpatient (CLI) | payer MEDICARE, SELFPAY ==
[2025-08-17 10:45] LABS: Immature Reticulocyte Fraction 7.9 % (3.0-15.9); Reticulocyte % (Auto) 3.4 % (0.5-1.5); Reticulocyte Absolute Auto 155.0 Biln/L (25.0-75.0); Reticulocyte Hgb Content 31.6 pg (28.0-35.0)
[2025-08-17 11:12] LABS: Folate 9.62 ng/mL (>5.38); LDH (Lactate Dehydrogenase) 173 U/L (120-246); Vitamin B12 818 pg/mL (211-911)
[2025-08-17 11:17] LABS: Ferritin 170 ng/mL (7.3-270.7); Iron 59 mcg/dL (50-170); Percent Iron Saturation 20 % (20-55); Total Iron Binding Capacity 294 mcg/dL (250-425); Unsaturated Iron Binding 235 (225-295)
[2025-08-24 06:41] LABS: Haptoglobin* 45 mg/dL (43-212)
== END | disposition home or self-care (01) ==
PROVIDERS: PCP Specialist; Referring Provider Nurse Practitioner Family; Visit Provider Nurse Practitioner Family
DX: R16.1 Splenomegaly, not elsewhere classified (principal)
CPT/HCPCS: 36415; 82607; 82728; 82746; 83010; 83540; 83550; 83615; 85046

== ENCOUNTER 2025-09-20 09:21 | Outpatient (RCR) | payer MEDICARE, SELFPAY | END 2025-10-11 23:59 | disposition home or self-care (01) | LOC: SCTC 09:21 | PROVIDERS: PCP Specialist; Referring Provider Specialist; Visit Provider Nurse Practitioner Family | DX: D50.9 Iron deficiency anemia, unspecified (principal); R16.1 Splenomegaly, not elsewhere classified; K74.60 Unspecified cirrhosis of liver; E03.9 Hypothyroidism, unspecified; E66.9 Obesity, unspecified; Z68.36 Body mass index [BMI] 36.0-36.9, adult; R16.2 Hepatomegaly with splenomegaly, not elsewhere classified | CPT/HCPCS: 99212; G0463 ==